=== PATIENT | female | born 1990 | race Caucasian/White ===

== ENCOUNTER → 2023-09-27 14:01 | Outpatient (REF) | payer SELFPAY | LOC: REG 14:01 | PROVIDERS: ATTENDING PHYSICIAN Obstetrics & Gynecology | DX: Z34.90 Encounter for supervision of normal pregnancy, unspecified, unspecified trimester (principal) | CPT/HCPCS: 36415; 86850; 86900; 86901; J2790 ==

== ENCOUNTER 2023-12-06 08:59 | Observation (INO) | payer SELFPAY ==
[2023-12-06 09:03] VITALS: BP 130/82; BMI 29.0
[2023-12-06] MEDS: BRETHINE 250 MCG SC (09:31)
[2023-12-06] MEDS: LR 1000 IV (09:32)
== END 2023-12-06 11:15 | disposition home or self-care (01) ==
LOC: LDRP 08:59
PROVIDERS: ADMITTING PHYSICIAN Obstetrics & Gynecology
DX: O32.1XX0 Maternal care for breech presentation, not applicable or unspecified (principal); Z3A.37 37 weeks gestation of pregnancy; Z83.3 Family history of diabetes mellitus; K21.9 Gastro-esophageal reflux disease without esophagitis
CPT/HCPCS: 59412; G0378

== ENCOUNTER 2023-12-24 07:06 | Inpatient (IN) | payer OTHER, SELFPAY ==
[2023-12-24 07:09] VITALS: BP 138/82; BMI 29.0
[2023-12-24] MEDS: LR 1000 IV ×3 (07:30→10:30)
[2023-12-24 07:51] LABS: % Basophils 0.2 % (0-2); % Eosinophils 0.3 % (0-6); % Immature Granulocytes 0.5 % (0-0.5); % Lymphocytes 22.7 % (20.5-51.1); % Monocytes 4.7 % (1.7-9.3); % Neutrophils 71.6 % (42.2-75.2); Absolute Immature Granulocytes 0.1 10^3/uL (0-0.05); Absolute Lymphocytes 2.8 10^3/uL (1.2-3.4); Absolute Monocytes 0.6 10^3/uL (0.1-0.6); Absolute Neutrophils 8.9 10^3/uL (1.4-6.5); Hematocrit 35.4 % (37.0-47.0); Hemoglobin 12.4 g/dL (12.0-16.0); Mean Corpuscular Hgb 29.1 pg (27.0-31.0); Mean Corpuscular Volume 83.1 fL (81.0-99.0); Mean Platelet Volume 11.5 fL (7.4-10.4); Nucleated Red Blood Cells % 0 %; Platelet Count 266 10^3/uL (130-400); Red Blood Cell Count 4.26 10^6/uL (4.20-5.40); Red Cell Dist. Width 13.9 % (11.5-14.5); White Blood Cell Count 12.5 10^3/uL (4.8-10.8)
[2023-12-24] MEDS: SUBLIMAZE 100 MCG EPIDURAL (08:15)
[2023-12-24] MEDS: FENTANYL/BUPIVACAINE 100 EPIDURAL (08:16)
[2023-12-24] MEDS: PITOCIN 30 UNITS/NSS 500 ML IV (11:50)
[2023-12-24] MEDS: MOTRIN 600 MG PO ×2 (15:26→21:40)
[2023-12-24] MEDS: TYLENOL 650 MG PO (21:40)
[2023-12-25] MEDS: MOTRIN 600 MG PO ×3 (03:56→18:05)
[2023-12-25] MEDS: TYLENOL 650 MG PO ×3 (03:56→18:05)
[2023-12-25 06:10] LABS: Hemoglobin 10.5 g/dL (12.0-16.0)
[2023-12-25] MEDS: PRENATAL PLUS 1 TABLET PO (07:49)
[2023-12-25] MEDS: HYPERRHO S-D 1500 UNIT IM (15:04)
[2023-12-26] MEDS: TYLENOL 650 MG PO (08:25)
[2023-12-26] MEDS: PRENATAL PLUS 1 TABLET PO (08:25)
[2023-12-27 15:45] LABS: Syphilis/T. pallidum Ab Reflex Negative (Negative)
== END 2023-12-26 13:33 | disposition home or self-care (01) | DRG 807 ==
LOC: LDRP 07:06
PROVIDERS: Obstetrics & Gynecology; ADMITTING PHYSICIAN Obstetrics & Gynecology
PROC: 0KQM0ZZ Repair Perineum Muscle, Open Approach (ICD-10-PCS; 2023-12-24)
PROC: 0UQMXZZ Repair Vulva, External Approach (ICD-10-PCS; 2023-12-24)
PROC: 10E0XZZ Delivery of Products of Conception, External Approach (ICD-10-PCS; 2023-12-24)
DX: O48.0 Post-term pregnancy (principal); Z37.0 Single live birth; Z3A.40 40 weeks gestation of pregnancy; O70.1 Second degree perineal laceration during delivery; K21.9 Gastro-esophageal reflux disease without esophagitis; Z83.3 Family history of diabetes mellitus
CPT/HCPCS: 85014; 85018; 85025; 85461; 86780; 86850; 86900; 86901; J2790